=== PATIENT | male | born 1965 | race Caucasian/White ===

== ENCOUNTER 2021-12-23 12:53 | Emergency (ER) | payer OTHER ==
[~2021-12-23] VITALS: Ht 182.9 cm; Wt 102.0 kg
[2021-12-23] MEDS ORDERED: BACL5TAB2 PO (17:08)
[2021-12-23 17:20] VITALS: BP 148/103
== END 2021-12-23 17:32 | disposition home or self-care (01) ==
LOC: ER 12:53
DX: S46.911A Strain of unspecified muscle, fascia and tendon at shoulder and upper arm level, right arm, initial encounter (principal); I10 Essential (primary) hypertension; W22.8XXA Striking against or struck by other objects, initial encounter; Y93.89 Activity, other specified; Y92.89 Other specified places as the place of occurrence of the external cause; Y99.8 Other external cause status
CPT/HCPCS: 73030